=== PATIENT | male | born 1945 | race Caucasian/White ===

== ENCOUNTER 2018-06-05 01:14 | Inpatient (IN) ==
[2018-06-05] MEDS ORDERED: Morphine Sulfate Inj 2 MG/ML Vial IV.PUSH ONE (01:47)
[2018-06-05] MEDS: Sod Chloride 0.9% Inj 1,000 ML IV.CONT SCH ×3 (02:26→19:24)
[2018-06-05 02:33] LABS: Baso % (Auto) 0.2 % (0.0-2.0); Hematocrit 29.5 % (39.0-51.0); Lymph # (Auto) 0.8 th/mm3 (1.0-4.8); Lymph % (Auto) 6.6 % (9.0-44.0); Mean Corpuscular HGB Conc 33.8 % (32.0-36.0); Mean Corpuscular Hemoglobin 30.9 pg (27.0-34.0); Mean Corpuscular Volume 91.5 fL (80.0-100.0); Mean Platelet Volume 8.3 fL (7.0-11.0); Mono # (Auto) 0.5 th/mm3 (0.0-0.9); Neut # (Auto) 11.3 th/mm3 (1.8-7.7); Neut % (Auto) 89.2 % (16.0-70.0); Platelet Count 205 th/mm3 (150-450); Red Blood Count 3.23 mil/mm3 (4.50-5.90); Red Cell Distribution Width 20.1 % (11.6-17.2); White Blood Count 12.7 th/mm3 (4.0-11.0)
[2018-06-05 02:41] LABS: Alanine Aminotransferase 36 U/L (12-78); Albumin 2.8 g/dL (3.4-5.0); Anion Gap 14 meq/L (5-15); Aspartate Aminotransferase 28 U/L (15-37); Blood Urea Nitrogen 86 mg/dL (7-18); Calcium 8.5 mg/dL (8.5-10.1); Carbon Dioxide 21.3 meq/L (21.0-32.0); Chloride 112 meq/L (98-107); Glomerular Filtration Rate 51 mL/min (>89); Glucose,Random 142 mg/dL (74-106); Lipase 87 U/L (73-393); Potassium 5.2 meq/L (3.5-5.1); Sodium 147 meq/L (136-145)
--- NOTE | 2018-06-05 02:41 | XR ---
EXAM DATE: 06/05/2018 1:48 AM EDT AGE/SEX: 73 years / Male INDICATIONS: Shortness of breath. CLINICAL DATA: This is the patient's initial encounter. Patient reports that signs and symptoms have been present for 1 day and indicates a pain score of Nonresponsive. MEDICAL/SURGICAL HISTORY: None. None. COMPARISON: No prior exams available for comparison. FINDINGS: Diffuse interstitial prominence with patchy diffuse nearly nodular opacities. Cardiac silhouette is m ildly enlarged. Bony thorax is intact. CONCLUSION: 1. Cardiomegaly with positive fluid balance. 2. Diffuse patchy bilateral nearly nodule airspace disease. . Electronically signed by: Delonte De La Rosa MD 06/05/2018 2:40 AM EDT
[2018-06-05 02:44] LABS: Alkaline Phosphatase 68 U/L (45-117); Total Protein 5.4 g/dL (6.4-8.2)
--- NOTE | 2018-06-05 02:58 | ED ---
HPI General Chief Complaint: Nausea/Vomiting/Diarrhea Stated Complaint: Diarrhea Time Seen by Provider: 06/05/18 01:47 Source: patient and family Mode of arrival: EMS Limitations: physical limitation History of Present Illness HPI narrative: 73-year-old male complains abdominal pain, diarrhea number shortness of breath. Patient states that the symptoms started around 1:00 this afternoon. Patient stated pain is cramping pain sharp pain diffuse of the abdomen. Patient denies any pain radiation. Patient states that he started having severe diarrhea this afternoon. Patient has history of pulmonary fibrosis and on 3 L O2 nasal cannula at home. Patient also has history of rheumatoid arthritis, CAD, status post stent placement. Patient is on Plavix. Patient complains of generalized malaise and weakness. Patient has history of elevated blood sugar recently. Patient has history of hyperlipidemia. Patient quit smoking many years ago. complaint: Reports abdominal pain Onset (ago): hour(s) Pain Consistency: constant Location: Reports diffuse Severity: moderate Severity scale (1-10): 7 Quality: Reports cramping Radiation: Reports none Migration to: Reports no migration Relieving factors: nothing Exacerbating factors: nothing Associated symptoms: Reports diarrhea Related Data Allergies Allergy/AdvReac Type Severity Reaction Status Date / Time No Known Allergies Allergy Unverified 06/05/18 01:16 Review of Systems ROS: all other systems reviewed are negative PMFSH Medical History Medical History High cholesterol (Acute) Pulmonary fibrosis (Acute) Rheumatoid arthritis (Acute) Surgical History Surgical History H/O heart artery stent (Acute) History of tonsillectomy (Acute) Social History Social History Substance History: No History of Abuse Second Hand Smoke Exposure: No Smoking Status: Never smoker How Often Do You Have a Drink Containing Alcohol: Never Recent Travel in [facility] within the Last 8 Weeks: No Recent Out of Country Travel within the Last 8 Weeks: No Immunization History Tetanus Immunization: <5 Years Hx Influenza Vaccine This Season: No Exam Narrative Exam Narrative: GENERAL: Well-nourished, well-developed patient. SKIN: Focused skin assessment warm/dry. HEAD: Normocephalic. EYES: No scleral icterus. No injection or drainage. NECK: Supple, trachea midline. No JVD or lymphadenopathy. CARDIOVASCULAR: Regular rate and rhythm without murmurs, gallops, or rubs. RESPIRATORY: Breath sounds equal bilaterally. No accessory muscle use. Patient has mild diffuse rhonchi bilaterally. GASTROINTESTINAL: Abdomen soft, nondistended. Patient has moderate tenderness on palpation diffuse over the abdomen. No rebound tenderness. No mass. MUSCULOSKELETAL: No cyanosis, or edema. BACK: Nontender without obvious deformity. No CVA tenderness. Course Initial Documented Vital Signs Temperature 97.2 F L 06/05/18 01:16 Pulse Rate 192 H 06/05/18 01:16 Respiratory Rate 27 H 06/05/18 01:16 Blood Pressure 201/130 H 06/05/18 01:16 Last Documented Vital Signs Temperature 97.2 F L 06/05/18 01:16 Pulse Rate 100 H 06/05/18 01:35 Respiratory Rate 39 H 06/05/18 01:35 Blood Pressure 149/63 H 06/05/18 01:35 Pulse Oximetry 100 06/05/18 01:59 Medical Decision Making [facility] Narrative Medical decision making narrative: 73-year-old male with abdominal pain, diarrhea, shortness of breath. History of pulmonary fibrosis. Patient was given nonrebreathing mask. Patient was feeling better. Patient was given nasal cannula 6 L. Patient maintained O2 saturation about 94%. Levaquin 750 mg IV. Flagyl 500 mg IV. Normal saline solution 1 L IV bolus. Normal saline solution 125 cc an hour. Medical Screen Exam Complete: Yes Emergency Medical Condition: Yes Differential Diagnosis Differential Diagnosis: Differential diagnosis including gastroenteritis, gastritis, PUD, pancreatitis, cholecystitis, colitis, UTI, pyelonephritis, nephrolithiasis, acute exacerbation of pulmonary fibrosis, bronchitis, pneumonia , PE, pneumothorax. Lab Data Lab results reviewed: Yes I reviewed the patient's lab results. Result diagrams: 06/05/18 02:00 06/05/18 02:00 Lab Results 06/05/18 06/05/18 06/05/18 Range/Units 02:00 02:00 02:20 WBC 12.7 H (4.0-11.0) th/mm3 RBC 3.23 L (4.50-5.90) mil/mm3 Hgb 10.0 L (13.0-17.0) gm/dL Hct 29.5 L (39.0-51.0) % MCV 91.5 (80.0-100.0) fL MCH 30.9 (27.0-34.0) pg MCHC 33.8 (32.0-36.0) % RDW 20.1 H (11.6-17.2) % Plt Count 205 (150-450) th/mm3 MPV 8.3 (7.0-11.0) fL Neut % (Auto) 89.2 H (16.0-70.0) % Lymph % (Auto) 6.6 L (9.0-44.0) % [place] % (Auto) 4.0 (0.0-8.0) % Eos % (Auto) 0.0 (0.0-4.0) % Baso % (Auto) 0.2 (0.0-2.0) % Neut # (Auto) 11.3 H (1.8-7.7) th/mm3 Lymph # (Auto) 0.8 L (1.0-4.8) th/mm3 [place] # (Auto) 0.5 (0.0-0.9) th/mm3 Eos # (Auto) 0.0 (0.0-0.4) th/mm3 Baso # (Auto) 0.0 (0.0-0.2) th/mm3 WBC Differential . Differential Comment Auto diff final Sodium 147 H (136-145) meq/L Potassium 5.2 H (3.5-5.1) meq/L Chloride 112 H (98-107) meq/L Carbon Dioxide 21.3 (21.0-32.0) meq/L Anion Gap 14 (5-15) meq/L BUN 86 H (7-18) mg/dL Creatinine 1.37 H (0.60-1.30) mg/dL Estimated GFR 51 L (>89) mL/min Random Glucose 142 H (74-106) mg/dL Lactic Acid 6.4 H* (0.4-2.0) mmol/L Calcium 8.5 (8.5-10.1) mg/dL Total Bilirubin 0.7 (0.2-1.0) mg/dL AST 28 (15-37) U/L ALT 36 (12-78) U/L Alkaline Phosphatase 68 (45-117) U/L Total Protein 5.4 L (6.4-8.2) g/dL Albumin 2.8 L (3.4-5.0) g/dL Lipase 87 (73-393) U/L Imaging Data Attestation: I personally reviewed and interpreted this imaging study as follows : Radiologist's impression: Abdomen/Pelvis CT 06/05/18 01:48 CONCLUSION: 1. Findings consistent with mild diverticulitis involving the proximal descending colon. No evidence for abscess or perforation at this time. 2. Findings consistent with pulmonary fibrosis at the lung bases. 3. Nonspecific prominence of the prostate gland and seminal vesicles. 4. Additional ancillary findings, as above. Chest X-Ray 06/05/18 01:48 CONCLUSION: 1. Cardiomegaly with positive fluid balance. 2. Diffuse patchy bilateral nearly nodule airspace disease. . Discharge Plan Discharge Disposition Patient Disposition: 30 Still Patient Discharge Details Diagnosis: Diverticulitis, Acute dehydration Physicians Team ED Provider: Bulmaro Monahan Primary Care Provider: Primary Care Luciai,No Status ED Status: With Doctor
--- NOTE | 2018-06-05 04:10 | CT ---
EXAM DATE: 06/05/2018 1:58 AM EDT AGE/SEX: 73 years / Male INDICATIONS: Abdominal pain. CLINICAL DATA: This is the patient's initial encounter. Patient reports that signs and symptoms have been present for 1 day and indicates a pain score of 5/10. MEDICAL/SURGICAL HISTORY: Rheumatoid arthritis. Pulmonary fibrosis. . Coronary stent. RADIATION DOSE: 6.64 CTDI (mGy) COMPARISON: No prior exams available for comparison. TECHNIQUE: Multiple contiguous axial images were obtained through the abdomen. Images were obtained using multiple row detector helical technique. Using automated exposure control and adjustment of the mA and/or kV according to patient size, radiation dose was kept as low as reasonably achievable to o btain optimal diagnostic quality images. DICOM format image data is available electronically for rev iew and comparison. FINDINGS: LOWER LUNGS: Bibasilar honeycombing. Small calcified granuloma at the left lung base. LIVER: 2.8 cm cyst in the inferior right lobe of the liver. Otherwise, liver demonstrates uniform de nsity without intrahepatic ductal dilatation. No calcified gallstones. SPLEEN: Multiple splenic calcifications. Otherwise unremarkable. PANCREAS: Grossly unremarkable. KIDNEYS: Kidneys are symmetrical in size without evidence for radiopaque renal calculi or hydronephr osis. No significant contour deforming renal abnormality. ADRENAL GLANDS: Unremarkable. AORTA: Diffuse atherosclerotic calcifications with ectasia distally measuring up to 1.9 cm. BOWEL/MESENTERY: Mild to moderate sigmoid and descending colon diverticulosis . There is pericolonic inflammatory stranding in the proximal descending colon. No focal drainable fluid collections or olivia e air. Bowel loops are otherwise nondistended. ABDOMINAL WALL: Intact. BLADDER: Contours are smooth. REPRODUCTIVE: Nonspecific prominence of the prostate gland and seminal vesicles. BONY STRUCTURES: Degenerative spondylosis of the lower lumbar spine. CONCLUSION: 1. Findings consistent with mild diverticulitis involving the proximal descending colon. No evidence for abscess or perforation at this time. 2. Findings consistent with pulmonary fibrosis at the lung bases. 3. Nonspecific prominence of the prostate gland and seminal vesicles. 4. Additional ancillary findings, as above. Electronically signed by: Delonte De La Rosa MD 06/05/2018 4:09 AM EDT
[2018-06-05] MEDS ORDERED: Pantoprazole Inj 40 MG Vial IV.PUSH ONE (04:47)
[2018-06-05] MEDS ORDERED: Aluminum/Magnesium/Simethacone Susp 30 ML UDC PO ONE (04:47)
[2018-06-05] MEDS ORDERED: Sod Chloride 0.9% Inj 1,000 ML IV.SIG SCH (05:00)
[2018-06-05] MEDS ORDERED: Bisacodyl 10 MG Supp RECTAL PRN (05:03)
[2018-06-05] MEDS ORDERED: Dextrose 50% in Water 50 ML Vial IV.PUSH PRN (05:11)
--- NOTE | 2018-06-05 06:10 | CT ---
EXAM DATE: 06/05/2018 5:12 AM EDT AGE/SEX: 73 years / Male INDICATIONS: Shortness of breath. CLINICAL DATA: This is the patient's initial encounter. Patient reports that signs and symptoms have been present for 1 day and indicates a pain score of 0/10. MEDICAL/SURGICAL HISTORY: Rheumatoid arthritis. Pulmonary fibrosis. Coronary artery stent. RADIATION DOSE: 6.02 CTDI (mGy) COMPARISON: C, CHEST 1V SINGLE AP, 06/05/2018. . TECHNIQUE: Multiple contiguous axial images were obtained through the chest without contrast. Image s were obtained in suspended respiration using multiple row detector helical technique. Using automa jose exposure control and adjustment of the mA and/or kV according to patient size, radiation dose was kept as low as reasonably achievable to obtain optimal diagnostic quality images. DICOM format imag e data is available electronically for review and comparison. FINDINGS: Lung: Diffuse interstitial prominence and honeycombing with lower lobe predominance consistent with patient's history of pulmonary fibrosis. There is a cavitary 3.6 cm mass in the right upper lobe with associated regional bronchiectasis. There is a 6 mm nodule in the superior segment of the left lower lobe. There is a 5 mm nodule in the anterior right upper lobe. Densely calcified granuloma in the le ft lung base. Pleura: No effusion, significant pleural thickening or pneumothorax. Mediastinum: Heart is unremarkable without pericardial effusion.Moderate coronary artery calcificati ons. Subcentimeter mediastinal and hilar nodes. Osseous Structures: No abnormal focal lytic or blastic bony lesions. Soft Tissues: Soft tissues are unremarkable. No significant axillary adenopathy. Other: Visulaized upper abdomen is unremarkable. CONCLUSION: 1. Diffuse lower lobe predominant interstitial thickening and honeycombing consistent with patient's history of pulmonary fibrosis. 2. 3.6 cm cavitary mass in the right upper lobe. There are at least two additional 5 to 6 mm lung no dules bilaterally. Comparisons with prior examinations would be beneficial for further evaluation. Al ternatively, PET/CT examination may be performed for further evaluation primarily of the right upper lobe cavitary mass. 3. Moderate coronary artery calcifications. Electronically signed by: Delonte De La Rosa MD 06/05/2018 6:09 AM EDT
[2018-06-05 06:12] LABS: Bacteria,Urine Rare /hpf; Bilirubin,Urine Negative (Negative); Clarity,Urine Clear (Clear); Color,Urine Yellow (Yellw/Straw); Glucose,Urine (UA) Negative (Negative); Leukocyte Esterase,Urine Negative (Negative); Nitrite,Urine Negative (Negative); Specific Gravity,Urine 1.017 (1.002-1.035)
--- NOTE | 2018-06-05 06:12 | MH ---
cc: Reji Olivo MD DATE OF ADMISSION: 06/05/2018 HISTORY OF PRESENT ILLNESS: The patient is a 73-year-old male with a past medical history of coronary artery disease with previous stent placement, pulmonary fibrosis on 3 liters home oxygen, who is visiting from [place], [place], presented to [facility] ED with complaint of abdominal pain associated with diarrhea for the past 2 days and shortness of breath. He also reports generalized malaise and weakness. He denies any associated symptoms of nausea, vomiting, chest pain, orthopnea, PND; however, he reports edema of his feet. On arrival to the ER, he was tachycardic and hypertensive. His laboratory data showed lactic acidosis with lactic acid level of 6.4 and acute kidney injury with a BUN of 86 and creatinine 1.37. Also, he was found to have leukocytosis with a WBC of 12.7. A CT abdomen and pelvis was obtained, which showed mild diverticulitis involving the proximal descending colon. No evidence for abscess or perforation and pulmonary fibrosis at the lung bases. In the ER, 1 liter normal saline bolus ordered along with Levaquin and Flagyl. The patient is awake, alert. He was placed on nonrebreather mask with a saturation of 100%. PAST MEDICAL HISTORY: Significant for: 1. Pulmonary fibrosis on 3 liters home oxygen continuously. 2. Coronary artery disease. 3. Hyperlipidemia. 4. Rheumatoid arthritis. PAST SURGICAL HISTORY: Previous hernia repair, previous cardiac catheterization with stent placement in February. SOCIAL HISTORY: Quit smoking 15 years ago, has a 40-pack year history of smoking. Social drinker. ALLERGIES: NO KNOWN DRUG ALLERGIES. MEDICATIONS AT HOME: Include: 1. Aspirin. 2. Plavix. 3. Lipitor. 4. Prednisone. 5. Folic acid. 6. Fluticasone. FAMILY HISTORY: Noncontributing to present illness. REVIEW OF SYSTEMS: As per HPI. The rest of review of systems unremarkable. PHYSICAL EXAMINATION: GENERAL: A 73-year-old male lying in bed in mild respiratory distress. VITAL SIGNS: Temperature 97.2, pulse of 92, blood pressure 149/63, respiratory rate 27, saturation 100% on nonrebreather. HEENT: Atraumatic, normocephalic. Pupils are equal, round, reactive to light and accommodation. Extraocular muscles intact. Conjunctivae pink, anicteric sclerae. Dry mucous membranes. NECK: Supple. No JVD, adenopathy or thyromegaly. Trachea in the midline. CARDIOVASCULAR: Regular rate and rhythm. Normal S1, S2. No murmurs, rubs or gallops noted. PULMONARY: Bilateral equal air entry with coarse breath sounds and crackles. ABDOMEN: Soft. Mild tenderness on palpation. No distention. Positive bowel sounds. EXTREMITIES: No cyanosis, clubbing or edema. NEUROLOGIC: No focal sensory deficit. LABORATORY DATA: WBC 12.7, hemoglobin 10, hematocrit 29.5, platelet count of 205. Sodium 147, potassium 5.2, chloride 112, CO2 21, BUN 86, creatinine 1.37, glucose of 142. Lactic acid 6.4, total bilirubin 0.7, AST 28, ALT 36, alkaline phosphatase 68, lipase 87, albumin 2.8. RADIOGRAPHIC STUDIES: Chest x-ray showed mild diverticulitis involving the proximal descending colon. No evidence of abscess or perforation. Chest x-ray showed diffuse patchy airspace disease. IMPRESSION: 1. Respiratory insufficiency. 2. Diverticulitis. 3. Abdominal pain associated with diarrhea. 4. Lactic acidemia. 5. Leukocytosis. 6. Acute kidney injury. 7. Anemia. 8. Pulmonary fibrosis. 9. Coronary artery disease. 10. Hyperlipidemia. RECOMMENDATIONS: 1. Monitor neuro status and avoid any sedatives. 2. Continue with oxygen and maintain sats above 92%. 3. Bronchodilators and DuoNeb every 4 hours plus q. 2 hours p.r.n. for shortness of breath and we will add Symbicort 160/4.5 mg two puffs b.i.d. 4. Add Solu-Medrol 60 mg intravenous every 8 hours. Of note, the patient is on chronic prednisone 20 mg daily at home. 5. We will obtain CT scan of the chest without contrast for further evaluation of pulmonary parenchyma. 6. Monitor heart rate and blood pressure closely and maintain MAP greater than 65 mmHg. He was given 1 liter bolus of normal saline. Continue with intravenous fluids as ordered, NS 125 mL an hour. 7. Serial lactic acid monitoring until clear. 8. Monitor renal function, I's and O's and avoid nephrotoxins. 9. Intravenous hydration as stated above. 10. Keep n.p.o. for now and place on Protonix 40 mg IV daily for gastrointestinal prophylaxis. 11. Continue with antibiotics. He is scheduled to receive Levaquin and Flagyl. We will continue with Flagyl 500 mg IV every 8 hours. Monitor for signs of infection, which include fever and WBC. Followup on blood cultures. In addition, we will check sputum culture with Gram stain, urinalysis with culture if indicated and we will check Clostridium difficile PCR to rule out Clostridium difficile. 12. Sliding scale insulin with Accu-Checks for glycemic control as the patient will be on intravenous steroids. 13. Monitor CBC. 14. Gastrointestinal prophylaxis with Protonix 40 mg daily and deep venous thrombosis prophylaxis with sequential compression devices and heparin subcutaneous. 15. Intravenous access. The patient has peripheral IV placed, central line if indicated. Reji Olivo MD AI/sv , 05:38 AM , 05:50 AM
[2018-06-05 06:18] LABS: INR 1.2 Ratio; Prothrombin Time 12.1 sec (9.8-11.6)
[2018-06-05] MEDS: Insulin NovoLIN Regular Correctional Sugar Inj SQ SCH ×3 (07:41→18:49)
[2018-06-05] MEDS: MethylPREDNISolone Sod Succinate Inj 40 MG/ML Vial IV.PUSH SCH ×3 (07:41→21:32)
[2018-06-05] MEDS: Pantoprazole Inj 40 MG Vial IV.PUSH SCH (09:34)
[2018-06-05] MEDS: Heparin - SQ 10,000 UNITS/ML Vial SQ SCH ×2 (09:34→21:31)
[2018-06-05 11:13] LABS: Calcium 8.4 mg/dL (8.5-10.1); Carbon Dioxide 19.7 meq/L (21.0-32.0); Potassium 4.9 meq/L (3.5-5.1)
[2018-06-05 18:33] LABS: Alanine Aminotransferase 29 U/L (12-78); Albumin 2.3 g/dL (3.4-5.0); Alkaline Phosphatase 54 U/L (45-117); Anion Gap 9 meq/L (5-15); Aspartate Aminotransferase 26 U/L (15-37); Blood Urea Nitrogen 70 mg/dL (7-18); Calcium 7.9 mg/dL (8.5-10.1); Carbon Dioxide 22.3 meq/L (21.0-32.0); Chloride 117 meq/L (98-107); Glomerular Filtration Rate 64 mL/min (>89); Glucose,Random 100 mg/dL (74-106); Potassium 4.6 meq/L (3.5-5.1); Sodium 148 meq/L (136-145); Total Protein 4.5 g/dL (6.4-8.2)
--- NOTE | 2018-06-05 21:05 | ECG ---
Date Performed: 06/05/2018 Time Performed: 01:38:17 PTAGE: 73 years EKG: SINUS TACHYCARDIA WITH OCCASIONAL SUPRAVENTRICULAR PREMATURE COMPLEXES LEFT ANTERIOR FASCIC ULAR BLOCK VOLTAGE CRITERIA FOR LVH ABNORMAL ECG NO PREVIOUS TRACING DOCTOR: Odalis Sims Interpretating Date/Time 06/05/2018 21:04:23
[2018-06-06] MEDS: Insulin NovoLIN Regular Correctional Sugar Inj SQ SCH ×4 (00:44→18:37)
[2018-06-06] MEDS: Sod Chloride 0.9% Inj 1,000 ML IV.CONT SCH (02:59)
[2018-06-06] MEDS ORDERED: Chlorhexidine Gluconate 2% 1 Pack (2 Cloths) TOPICAL PRN (04:00)
[2018-06-06] MEDS: MethylPREDNISolone Sod Succinate Inj 40 MG/ML Vial IV.PUSH SCH ×2 (05:18→14:37)
[2018-06-06] MEDS: Chlorhexidine Gluconate 2% 1 Pack (2 Cloths) TOPICAL SCH (05:21)
[2018-06-06 06:34] LABS: Hematocrit 22.2 % (39.0-51.0); Hemoglobin 7.2 gm/dL (13.0-17.0); Lymph # (Auto) 0.6 th/mm3 (1.0-4.8); Lymph % (Auto) 6.6 % (9.0-44.0); Mean Corpuscular HGB Conc 32.3 % (32.0-36.0); Mean Corpuscular Hemoglobin 29.9 pg (27.0-34.0); Mean Corpuscular Volume 92.4 fL (80.0-100.0); Mean Platelet Volume 8.1 fL (7.0-11.0); Mono # (Auto) 0.1 th/mm3 (0.0-0.9); Mono % (Auto) 1.4 % (0.0-8.0); Neut # (Auto) 8.5 th/mm3 (1.8-7.7); Platelet Count 186 th/mm3 (150-450); Red Cell Distribution Width 20.4 % (11.6-17.2); White Blood Count 9.2 th/mm3 (4.0-11.0)
[2018-06-06 07:03] LABS: Alanine Aminotransferase 26 U/L (12-78); Albumin 2.5 g/dL (3.4-5.0); Alkaline Phosphatase 53 U/L (45-117); Anion Gap 8 meq/L (5-15); Aspartate Aminotransferase 22 U/L (15-37); Blood Urea Nitrogen 56 mg/dL (7-18); Carbon Dioxide 24.4 meq/L (21.0-32.0); Chloride 115 meq/L (98-107); Glomerular Filtration Rate 66 mL/min (>89); Glucose,Random 118 mg/dL (74-106); Magnesium 2.6 mg/dL (1.5-2.5); Phosphorus 3.9 mg/dL (2.5-4.9); Potassium 4.8 meq/L (3.5-5.1); Sodium 147 meq/L (136-145); Total Protein 4.7 g/dL (6.4-8.2)
[2018-06-06] MEDS: Heparin - SQ 10,000 UNITS/ML Vial SQ SCH (08:00)
[2018-06-06] MEDS: Pantoprazole Inj 40 MG Vial IV.PUSH SCH (08:01)
[2018-06-06] MEDS ORDERED: Acetaminophen 325 MG Tablet PO PRN (12:34)
[2018-06-06 16:27] LABS: Hematocrit 21.5 % (39.0-51.0)
--- NOTE | 2018-06-06 19:59 | P.PNIM ---
Subjective Interval history: Patient states he feels better than when he first arrived to the hospital. His symptoms of a diarrhea and abdominal pain have improved. Physical Exam Vital signs: Vital Signs 06/05/18 20:00 06/05/18 20:58 06/05/18 21:00 Temperature 98 F Pulse Rate 80 85 83 Respiratory Rate 24 20 33 H Blood Pressure 109/59 L 110/58 L Pulse Oximetry 100 95 95 06/05/18 22:00 06/05/18 23:00 06/06/18 00:00 Temperature 97.8 F Pulse Rate 85 81 78 Respiratory Rate 28 H 30 H 27 H Blood Pressure 102/51 L 108/55 L 106/59 L Pulse Oximetry 96 99 97 06/06/18 00:34 06/06/18 01:00 06/06/18 02:00 Temperature Pulse Rate 78 75 73 Respiratory Rate 34 H 23 26 H Blood Pressure 106/59 L 117/56 L 133/60 Pulse Oximetry 96 100 100 06/06/18 03:00 06/06/18 03:42 06/06/18 04:00 Temperature 98.1 F Pulse Rate 72 74 79 Respiratory Rate 39 H 18 19 Blood Pressure 115/59 L 110/53 L Pulse Oximetry 100 92 L 06/06/18 05:00 06/06/18 06:00 06/06/18 07:00 Temperature 97.6 F Pulse Rate 78 75 78 Respiratory Rate 24 25 H 22 Blood Pressure 95/54 L 120/59 L Pulse Oximetry 83 L 100 100 06/06/18 08:00 06/06/18 08:13 06/06/18 08:15 Temperature Pulse Rate 75 74 74 Respiratory Rate 30 H 32 H 31 H Blood Pressure 120/59 L 121/59 L Pulse Oximetry 93 L 96 99 06/06/18 09:00 06/06/18 10:00 06/06/18 11:00 Temperature Pulse Rate 72 77 86 Respiratory Rate 26 H 34 H 42 H Blood Pressure 119/59 L 114/55 L 111/53 L Pulse Oximetry 99 97 90 L 06/06/18 12:00 06/06/18 13:00 06/06/18 14:00 Temperature Pulse Rate 75 90 85 Respiratory Rate 16 41 H 36 H Blood Pressure 124/60 122/58 L 123/55 L Pulse Oximetry 100 91 L 95 06/06/18 15:00 06/06/18 16:00 10/04/18 16:38 Temperature Pulse Rate 77 82 81 Respiratory Rate 25 H 35 H 24 Blood Pressure 131/61 122/58 L Pulse Oximetry 99 97 06/06/18 17:00 06/06/18 18:00 06/06/18 18:01 Temperature Pulse Rate 80 91 H 94 H Respiratory Rate 33 H 32 H 41 H Blood Pressure 112/58 L 116/85 Pulse Oximetry 100 91 L 91 L Intake & Output 06/06/18 06/06/18 06/07/18 06:59 18:59 06:59 Intake Total 860 / 860 100 / 100 Output Total 700 / 700 900 / 900 Balance 160 / 160 -800 / -800 Intake: IV 100 / 100 100 / 100 Flagyl 500 MG Inj 100 ML @ 100 100 / 100 100 / 100 mls/hr IV.SIG Q8H NILSA Rx#: [id number] Oral 760 / 760 Output: Urine 700 / 700 900 / 900 Other: Date of Last Bowel Movement 06/05/18 06/05/18 # Bowel Movements 1 Narrative: General patient in no acute distress, patient appears pale. HEENT extraocular movements are intact, clear oropharyngeal mucosa, no JVD Cardiovascular S1-S2 audible, RRR, no murmurs rubs or gallops Respiratory crackles auscultated bilaterally mainly in the lower lobes. Abdomen soft, nontender, nondistended, minimal abdominal pain on examination. Extremities no edema 2+ distal pulses in bilateral upper and lower extremities Neuro patient moves all 4 extremities sensation is intact bilaterally Results - Labs CBC & Chem 7: 06/06/18 16:00 06/06/18 04:32 Laboratory Results - last 24 hr 06/06/18 06/06/18 06/06/18 00:08 04:32 04:32 WBC 9.2 RBC 2.40 L Hgb 7.2 L D Hct 22.2 L MCV 92.4 MCH 29.9 MCHC 32.3 RDW 20.4 H Plt Count 186 MPV 8.1 Neut % (Auto) 92.0 H Lymph % (Auto) 6.6 L Ransom % (Auto) 1.4 Eos % (Auto) 0.0 Baso % (Auto) 0.0 Neut # (Auto) 8.5 H Lymph # (Auto) 0.6 L Ransom # (Auto) 0.1 Eos # (Auto) 0.0 Baso # (Auto) 0.0 WBC Differential . Differential Comment Auto diff final Sodium 147 H Potassium 4.8 Chloride 115 H Carbon Dioxide 24.4 Anion Gap 8 BUN 56 H Creatinine 1.10 Estimated GFR 66 L POC Glucose 136 H Random Glucose 118 H Calcium 8.0 L Phosphorus 3.9 Magnesium 2.6 H Total Bilirubin 0.4 AST 22 ALT 26 Alkaline Phosphatase 53 Total Protein 4.7 L Albumin 2.5 L 06/06/18 06/06/18 12:39 16:00 WBC RBC Hgb 7.0 L Hct 21.5 L MCV MCH MCHC RDW Plt Count MPV Neut % (Auto) Lymph % (Auto) Ransom % (Auto) Eos % (Auto) Baso % (Auto) Neut # (Auto) Lymph # (Auto) Ransom # (Auto) Eos # (Auto) Baso # (Auto) WBC Differential Differential Comment Sodium Potassium Chloride Carbon Dioxide Anion Gap BUN Creatinine Estimated GFR POC Glucose 162 H Random Glucose Calcium Phosphorus Magnesium Total Bilirubin AST ALT Alkaline Phosphatase Total Protein Albumin Microbiology 06/05/18 02:10 Blood - Peripheral Aerobic Blood Culture - Preliminary No growth in 1 day 06/05/18 02:10 Blood - Peripheral Anaerobic Blood Culture - Preliminary No growth in 1 day 06/05/18 02:20 Blood - Peripheral Aerobic Blood Culture - Preliminary No growth in 1 day 06/05/18 02:20 Blood - Peripheral Anaerobic Blood Culture - Preliminary No growth in 1 day Assessment and Plan - Plan This patient is a 73-year-old male with a diagnosis of coronary artery disease status post stent placed in February of this year. The patient also has pulmonary fibrosis and is on 3 L of supplemental oxygen at home. As per the patient's he also has Le's esophagus. He is visiting [place] from [facility]. He presented to our facility last night with 1 day of black tarry diarrhea. The patient and the patient's provided the history. They say he had diarrhea for almost the whole day. He felt weak and dehydrated and then came into the emergency department for evaluation. 1. Acute symptomatic blood loss anemia likely GI bleed I discussed the case with the patient's was at bedside. She showed me labs from May 2018 which showed the patient's hemoglobin was 15.2. He arrived to our facility with a hemoglobin of 10 which has dropped today to 7.0. After the initiation of IV fluids his abdominal pain has improved and he has not had another bowel movement while in-house. A stool guaiac will be performed however from the description that the patient and his are giving me this is more than likely a GI bleed. He will be started on a Protonix drip. GI will be consulted for possible upper and lower endoscopy. A CT scan of the abdomen and pelvis was also done in the emergency department which showed mild diverticulitis involving the proximal descending colon. Hold Lovenox The patient is on aspirin and Plavix for a recent coronary stent that was placed. Last dose he received was this morning. He will be given two units PRBC. INR is 1.2. I will follow-up with GI tomorrow a.m. for specific recommendations. Blood pressure is currently stable. Vital signs are all stable. Lactate normalized after the initiation of IV fluids. His lactic acidosis was likely secondary to dehydration due to the diarrhea and blood loss. 2. Pulmonary fibrosis The patient has a diagnosis of pulmonary fibrosis and is on 3 L of supplemental oxygen at baseline. CT scan of the chest shows diffuse lower lobe interstitial thickening and honeycombing which is consistent with the patient's pulmonary disease. There is also a 3.6 cm cavitary mass in the right upper lobe and 2 additional 5-6 mm lung nodules bilaterally. As per the patient's these are findings that were seen previously on CT scans of the chest and have been worked up in [place]. She states that she will call the hospital in the morning and send records to our facility. The fax number from our facility will be given to the patient in order for her to have that hospital release the records. These instructions were discussed with the patient's nurse at bedside. Solu-Medrol has been stopped as the patient is currently without any respiratory distress and he is on 3 L of supplemental oxygen which is what he uses at baseline. He currently does not have any difficulty breathing. 3. Acute kidney injury likely secondary to #1 Initially the patient was tachycardic and in acute kidney injury. After the initiation of IV fluids the patient's serum creatinine has improved. We will follow-up with an a.m. renal panel. 4. Coronary artery disease status post stent placement in February 2018. 5. Dyslipidemia The patient is on aspirin and Plavix. Last dose was received this morning. I have held the aspirin and Plavix for now. The patient will receive 2 units of PRBCs as his hemoglobin is around 15 at baseline. I will follow-up with GI tomorrow morning and discussed the plan with him for endoscopy. Once the bleeding is stabilized the patient should be restarted on aspirin and Plavix given his recent stent placement and coronary artery disease. No DVT prophylaxis for now as the patient has an active GI bleed.
[2018-06-06] MEDS ORDERED: Pantoprazole Inj 40 MG Vial IV.PUSH ONE (20:16)
[2018-06-06] MEDS ORDERED: Sodium Chlor 0.9% Inj 250 ML IV.SIG SCH (21:00)
[2018-06-06] MEDS: Pantoprazole Inj 80 MG in Sodium Chlor 0.9% Inj 100 ML IV.CONT SCH (21:03)
[2018-06-07] MEDS: Insulin NovoLIN Regular Correctional Sugar Inj SQ SCH ×4 (01:38→18:46)
[2018-06-07] MEDS: Chlorhexidine Gluconate 2% 1 Pack (2 Cloths) TOPICAL SCH (06:12)
[2018-06-07] MEDS: Pantoprazole Inj 80 MG in Sodium Chlor 0.9% Inj 100 ML IV.CONT SCH ×2 (10:00→20:10)
--- NOTE | 2018-06-07 10:23 | P.PNIM ---
Subjective Interval history: Patient does not appear to be in any acute distress. He has minimal abdominal pain otherwise no other complaints. Physical Exam Vital signs: Vital Signs 06/06/18 11:00 06/06/18 12:00 06/06/18 13:00 Temperature Pulse Rate 86 75 90 Respiratory Rate 42 H 16 41 H Blood Pressure 111/53 L 124/60 122/58 L Pulse Oximetry 90 L 100 91 L 06/06/18 14:00 06/06/18 15:00 06/06/18 16:00 Temperature Pulse Rate 85 77 82 Respiratory Rate 36 H 25 H 35 H Blood Pressure 123/55 L 131/61 122/58 L Pulse Oximetry 95 99 97 06/06/18 16:38 06/06/18 17:00 06/06/18 18:00 Temperature Pulse Rate 81 80 91 H Respiratory Rate 24 33 H 32 H Blood Pressure 112/58 L Pulse Oximetry 100 91 L 06/06/18 18:01 06/06/18 19:00 06/06/18 20:00 Temperature 98 F Pulse Rate 94 H 88 84 Respiratory Rate 41 H 38 H 36 H Blood Pressure 116/85 136/60 118/58 L Pulse Oximetry 91 L 87 L 97 06/06/18 21:00 06/06/18 21:21 06/06/18 22:00 Temperature Pulse Rate 86 86 84 Respiratory Rate 35 H 20 33 H Blood Pressure 111/53 L 111/58 L Pulse Oximetry 94 L 96 95 06/06/18 23:00 06/07/18 00:00 06/07/18 00:04 Temperature 98 F 98.4 F Pulse Rate 82 82 81 Respiratory Rate 30 H 31 H 30 H Blood Pressure 125/58 L 121/58 L 121/58 L Pulse Oximetry 97 97 98 06/07/18 01:00 06/07/18 02:00 06/07/18 03:00 Temperature Pulse Rate 85 78 80 Respiratory Rate 33 H 29 H 34 H Blood Pressure 127/86 122/61 121/64 Pulse Oximetry 95 99 95 06/07/18 03:01 06/07/18 03:05 06/07/18 03:18 Temperature 98.3 F 98 F Pulse Rate 80 85 88 Respiratory Rate 30 H 29 H 16 Blood Pressure 121/64 118/66 Pulse Oximetry 98 06/07/18 04:00 06/07/18 05:00 06/07/18 05:57 Temperature 98.2 F 98 F Pulse Rate 89 81 63 Respiratory Rate 31 H 28 H 32 H Blood Pressure 121/67 136/67 133/67 Pulse Oximetry 97 96 06/07/18 06:00 06/07/18 07:00 Temperature Pulse Rate 84 86 Respiratory Rate 44 H 32 H Blood Pressure 139/71 147/68 H Pulse Oximetry 95 95 Intake & Output 06/06/18 06/07/18 06/07/18 18:59 06:59 18:59 Intake Total 200 / 200 1263 / 1263 Output Total 900 / 900 850 / 850 Balance -700 / -700 413 / 413 Intake: IV 200 / 200 1100 / 1100 NS Inj 1,000 ML @ 50 mls/hr IV. 1000 / 1000 CONT .Q20H NILSA Rx#:[id number] Flagyl 500 MG Inj 100 ML @ 100 200 / 200 100 / 100 mls/hr IV.SIG Q8H NILSA Rx#: [id number] Oral 0 / 0 Intake (Blood Product) Amt 163 / 163 Rbc As-3 Leukoreduced Unit 99 / 99 [id number] Rbc As-3 Leukoreduced Unit 64 / 64 [id number] Output: Urine 900 / 900 850 / 850 Other: Date of Last Bowel Movement 06/05/18 06/05/18 # Bowel Movements 1 Narrative: General patient in no acute distress, patient appears pale. HEENT extraocular movements are intact, clear oropharyngeal mucosa, no JVD Cardiovascular S1-S2 audible, RRR, no murmurs rubs or gallops Respiratory crackles auscultated bilaterally mainly in the lower lobes. Abdomen soft, nontender, nondistended, minimal abdominal pain on examination. Extremities no edema 2+ distal pulses in bilateral upper and lower extremities Neuro patient moves all 4 extremities sensation is intact bilaterally Results - Labs CBC & Chem 7: 06/06/18 16:00 06/06/18 04:32 Laboratory Results - last 24 hr 06/06/18 06/06/18 06/06/18 12:39 16:00 20:44 Hgb 7.0 L Hct 21.5 L POC Glucose 162 H Blood Type O Positive Blood Type Recheck Required Antibody Screen Negative MTS Gel Crossmatch See Detail 06/07/18 06/07/18 00:21 05:55 Hgb Hct POC Glucose 143 H 131 H Blood Type Blood Type Recheck Antibody Screen MTS Gel Crossmatch Microbiology 06/05/18 02:10 Blood - Peripheral Aerobic Blood Culture - Preliminary No growth in 1 day 06/05/18 02:10 Blood - Peripheral Anaerobic Blood Culture - Preliminary No growth in 1 day 06/05/18 02:20 Blood - Peripheral Aerobic Blood Culture - Preliminary No growth in 1 day 06/05/18 02:20 Blood - Peripheral Anaerobic Blood Culture - Preliminary No growth in 1 day Assessment and Plan - Plan This patient is a 73-year-old male with a diagnosis of coronary artery disease status post stent placed in February of this year. The patient also has pulmonary fibrosis and is on 3 L of supplemental oxygen at home. As per the patient's he also has Le's esophagus. He is visiting [place] from [facility]. He presented to our facility last night with 1 day of black tarry diarrhea. The patient and the patient's provided the history. They say he had diarrhea for almost the whole day. He felt weak and dehydrated and then came into the emergency department for evaluation. 1. Acute symptomatic blood loss anemia likely GI bleed The patient has stable vital signs this morning. Heart rate is in the 80s, blood pressure is in the high 130s. He is on IV Protonix and IV fluids. GI has been consulted. I will follow-up with recognitions from GI. This morning's labs are currently pending. He has received 2 units PRBCs and I will follow-up the patient's hemoglobin today. The patient's has documentation of his hemoglobin in May 2018 which was 15.2. Hemoglobin as of yesterday was 7.0. The patient's diarrhea has improved and he did not have a bowel movement overnight. The patient is on aspirin and Plavix. He recently had a stent placed in February 2018. After GI evaluates the patient I will follow-up with him in regards to when he can be restarted on his aspirin and Plavix. 2. Pulmonary fibrosis The patient has a diagnosis of pulmonary fibrosis and is on 3 L of supplemental oxygen at baseline. CT scan of the chest shows diffuse lower lobe interstitial thickening and honeycombing which is consistent with the patient's pulmonary disease. There is also a 3.6 cm cavitary mass in the right upper lobe and 2 additional 5-6 mm lung nodules bilaterally. As per the patient's these are findings that were seen previously on CT scans of the chest and have been worked up in [place]. She states that she will call the hospital in the morning and send records to our facility. The fax number from our facility will be given to the patient in order for her to have that hospital release the records. These instructions were discussed with the patient's nurse at bedside. Solu-Medrol has been stopped as the patient is currently without any respiratory distress and he is on 3 L of supplemental oxygen which is what he uses at baseline. He currently does not have any difficulty breathing. We will follow-up with results of these records. 3. Acute kidney injury likely secondary to #1 Initially the patient was tachycardic and in acute kidney injury. After the initiation of IV fluids the patient's serum creatinine has improved. We will follow-up with an a.m. renal panel which is currently pending. 4. Coronary artery disease status post stent placement in February 2018. 5. Dyslipidemia The patient is on aspirin and Plavix. Last dose was received this morning. I have held the aspirin and Plavix for now. The patient will receive 2 units of PRBCs as his hemoglobin is around 15 at baseline. I will follow-up with GI tomorrow morning and discussed the plan with him for endoscopy. Once the bleeding is stabilized the patient should be restarted on aspirin and Plavix given his recent stent placement and coronary artery disease. No DVT prophylaxis for now as the patient has an active GI bleed.
--- NOTE | 2018-06-07 11:20 | P.CONGI ---
History of Present Illness Consult date: 06/07/18 Consult reason: GI bleed Chief complaint: Acute Diverticulitis, Dehydration, Pulm Fibrosis History of Present Illness: This is a 73-year-old male who came to the hospital here at [place] for evaluation on 06/05/2018 with symptoms of abdominal pain diarrhea and some shortness of breath. Patient is originally from the [facility] and was here on vacation when he noted loose stools uncontrolled as well as abdominal pain and cramping diffusely across his abdomen. Patient also noted dark melena stool when the abdominal cramping was occurring. Patient did have one episode of nausea and vomiting in the emergency room but has been controlled since that time. Initial hemoglobin on admission was 10 but had dropped down to 7. And 2 units of packed RBCs were transfused. Patient has cardiovascular disease and recent stent placement in February 2018 in which at that time he was started on Plavix. Patient also has history of Le's esophagus and states endoscopy approximately 2-1/2 years ago and colonoscopy at the age of 52 x 1 and no repeat since. Aggregating factors to patient's melena and abdominal pain could be related to travel, RA medications, and has been eaten seafood as well as raw oysters x2. Patient also had been working on a low-carb diet a few weeks before his vacation. Patient denies any history of peptic ulcer disease or bleeding ulcers. Patient notes occasionally does have loose diarrhea stools which he describes as sporadic and states that he feels it is related to his RA med. Labs show bilirubin and LFTs normal, PT/INR 1.2, C. difficile test negative. During exam patient did note some mild dysphasia at the lower end of esophagus and states this is been going on for at least a year but he does not note any choking sensations. Patient does use home O2 at 3 L and is currently being managed at 3 L nasal cannula in the intensive care setting. Currently patient has no shortness of breath, heart rate is controlled with sinus rhythm and blood pressure is stable without any noted hypotension. Gastroenterology was consulted to assist with patient's plan of care, symptoms. According to the patient and the record Plavix has been on hold day 2. [facility] - History History Provided By: Patient - Medical History Medical History: Medical History (Last Reviewed 06/05/18 @ 02:55 by Bulmaro Monahan MD) High cholesterol Pulmonary fibrosis Rheumatoid arthritis - Surgical History Surgical History: Surgical History (Last Reviewed 06/05/18 @ 02:55 by Bulmaro Monahan MD) H/O heart artery stent History of tonsillectomy - Tobacco History Second Hand Smoke Exposure: No Tobacco Use In Past 30 Days: No Smoking Status: Former smoker Tobacco Type: Cigarettes - Alcohol History How Often Do You Have a Drink Containing Alcohol: Never - Substance Use History Substance History: No History of Abuse - Travel History Recent Travel in the [place] Within the Last 8 Weeks: No Recent Travel Out of the Country Within the Last 8 Weeks: No - Immunization History Tetanus Immunization: <5 Years Hx Influenza Vaccine This Season: No Medications and Allergies Active Medications: Active Medications Acetaminophen (Tylenol) 650 mg PO Q6H PRN PRN Reason: PAIN 1-10 Last Admin: 06/06/18 13:26 Dose: 650 mg Al Hydroxide/Mg Hydroxide (Milk Of Magnmarco Liq) 30 ml PO Q12H PRN PRN Reason: Mild Constipation Last Admin: 06/05/18 05:12 Dose: 30 ml Albuterol (Duoneb Neb (Prn)) 1 ampul NEB Q2HR NEB PRN PRN Reason: WHEEZING Albuterol (Duoneb Neb (Nilsa)) 1 ampul NEB Q6HR NEB NILSA Last Admin: 06/07/18 03:18 Dose: 1 ampul Atorvastatin Calcium (Lipitor) 40 mg PO HS NILSA Last Admin: 06/06/18 21:00 Dose: 40 mg Bisacodyl (Dulcolax Supp) 10 mg RECTAL DAILY PRN PRN Reason: SEVERE CONSITIPATION Chlorhexidine Gluconate (Chlorhexidine 2% Cloth) 3 pack TOPICAL DAILY@0400 NILSA Stop: 06/11/18 03:59 Last Admin: 06/07/18 06:12 Dose: 3 pack Chlorhexidine Gluconate (Chlorhexidine 2% Cloth) 3 pack TOPICAL DAILY@0400 PRN PRN Reason: Extra cloth needed Stop: 06/11/18 03:59 Dextrose (D50w Vial) 50 ml IV.PUSH UNSCH PRN PRN Reason: PER HYPOGLYCEMIA PROTOCOL Glucagon (Glucagon Inj) 1 mg OTHER PRN PRN PRN Reason: for Hypoglycemia Protocol Sodium Chloride (Ns Inj) 1,000 mls @ 50 mls/hr IV.CONT .Q20H NILSA Last Infusion: 06/07/18 06:13 Dose: Infused Sodium Chloride (Ns Inj) 1,000 mls @ 0 mls/hr IV.SIG BOLUS NILSA Metronidazole/Sodium Chloride (Flagyl 500 Mg Inj) 100 mls @ 100 mls/hr IV.SIG Q8H NILSA Last Admin: 06/07/18 06:13 Dose: 100 mls/hr Sodium Chloride (Ns Inj) 250 mls @ 15 mls/hr IV.SIG ONCE NILSA Stop: 06/07/18 13:39 Last Admin: 06/07/18 01:05 Dose: 15 mls/hr Pantoprazole Sodium 80 mg/ (Sodium Chloride) 100 mls @ 10 mls/hr IV.CONT CONT NILSA Last Admin: 06/06/18 21:03 Dose: 10 mls/hr Insulin Human Regular (Novolin R Correctional Sugar Inj) 0 units SQ Q6HR NILSA; Protocol Last Admin: 06/07/18 06:15 Dose: Not Given Lactulose (Lactulose Liq) 30 ml PO DAILY PRN PRN Reason: SEVERE CONSITIPATION Allergies Allergy/AdvReac Type Severity Reaction Status Date / Time No Known Allergies Allergy Unverified 06/05/18 01:16 Home Medications Medication Instructions Recorded Confirmed Type aspirin 81 mg PO DAILY 06/05/18 06/05/18 History atorvastatin [Lipitor] 40 mg PO DAILY 06/05/18 06/05/18 History clopidogrel [Plavix] 75 mg PO DAILY 06/05/18 06/05/18 History fluticasone 2 spray INTRANASAL DAILY 06/05/18 06/05/18 History folic acid 0.8 mg PO DAILY 06/05/18 06/05/18 History hydrochlorothiazide 12.5 mg PO DAILY 06/05/18 06/05/18 History irbesartan 150 mg PO DAILY 06/05/18 06/05/18 History leflunomide [Arava] 06/05/18 History prednisone 20 mg PO DAILY 06/05/18 06/05/18 History tamsulosin 0.4 mg PO DAILY 06/05/18 06/05/18 History Exam Vital signs: Vital Signs 06/06/18 12:00 06/06/18 13:00 06/06/18 14:00 Temperature Pulse Rate 75 90 85 Respiratory Rate 16 41 H 36 H Blood Pressure 124/60 122/58 L 123/55 L Pulse Oximetry 100 91 L 95 10/04/18 15:00 06/06/18 16:00 06/06/18 16:38 Temperature Pulse Rate 77 82 81 Respiratory Rate 25 H 35 H 24 Blood Pressure 131/61 122/58 L Pulse Oximetry 99 97 06/06/18 17:00 06/06/18 18:00 06/06/18 18:01 Temperature Pulse Rate 80 91 H 94 H Respiratory Rate 33 H 32 H 41 H Blood Pressure 112/58 L 116/85 Pulse Oximetry 100 91 L 91 L 06/06/18 19:00 06/06/18 20:00 06/06/18 21:00 Temperature 98 F Pulse Rate 88 84 86 Respiratory Rate 38 H 36 H 35 H Blood Pressure 136/60 118/58 L 111/53 L Pulse Oximetry 87 L 97 94 L 06/06/18 21:21 06/06/18 22:00 06/06/18 23:00 Temperature Pulse Rate 86 84 82 Respiratory Rate 20 33 H 30 H Blood Pressure 111/58 L 125/58 L Pulse Oximetry 96 95 97 06/07/18 00:00 06/07/18 00:04 06/07/18 01:00 Temperature 98 F 98.4 F Pulse Rate 82 81 85 Respiratory Rate 31 H 30 H 33 H Blood Pressure 121/58 L 121/58 L 127/86 Pulse Oximetry 97 98 95 06/07/18 02:00 06/07/18 03:00 06/07/18 03:01 Temperature 98.3 F Pulse Rate 78 80 80 Respiratory Rate 29 H 34 H 30 H Blood Pressure 122/61 121/64 121/64 Pulse Oximetry 99 95 98 06/07/18 03:05 06/07/18 03:18 06/07/18 04:00 Temperature 98 F 98.2 F Pulse Rate 85 88 89 Respiratory Rate 29 H 16 31 H Blood Pressure 118/66 121/67 Pulse Oximetry 97 06/07/18 05:00 06/07/18 05:57 06/07/18 06:00 Temperature 98 F Pulse Rate 81 63 84 Respiratory Rate 28 H 32 H 44 H Blood Pressure 136/67 133/67 139/71 Pulse Oximetry 96 95 06/07/18 07:00 Temperature Pulse Rate 86 Respiratory Rate 32 H Blood Pressure 147/68 H Pulse Oximetry 95 Intake & Output 06/06/18 06/07/18 06/07/18 18:59 06:59 18:59 Intake Total 200 / 200 1263 / 1263 Output Total 900 / 900 850 / 850 Balance -700 / -700 413 / 413 Intake: IV 200 / 200 1100 / 1100 NS Inj 1,000 ML @ 50 mls/hr IV. 1000 / 1000 CONT .Q20H NILSA Rx#:[id number] Flagyl 500 MG Inj 100 ML @ 100 200 / 200 100 / 100 mls/hr IV.SIG Q8H NILSA Rx#: [id number] Oral 0 / 0 Intake (Blood Product) Amt 163 / 163 Rbc As-3 Leukoreduced Unit 99 / 99 [id number] Rbc As-3 Leukoreduced Unit 64 / 64 [id number] Output: Urine 900 / 900 850 / 850 Other: Date of Last Bowel Movement 06/05/18 06/05/18 # Bowel Movements 1 - Constitutional no acute distress (At rest currently in the intensive care setting), average body habitus, cooperative - Routine HEENT Exam Head: Present: normocephalic ENT: Present: mucous membranes moist - Routine Neck Exam Present: supple - Routine Respiratory Exam Present: accessory muscle use (No obvious shortness of breath but patient is using oxygen at 3 L nasal cannula which is his norm at home) - Routine Cardiovascular Exam Present: RRR - Routine Abdominal Exam Present: soft (No obvious distention bowel sounds are active, no obvious abdominal pain this a.m. and to light palpation) - Routine Skin Exam Present: intact, pallor (Pale) - Routine Neurological Exam Present: alert (Answer simple questions) Results - Labs CBC & Chem 7: 06/06/18 16:00 06/06/18 04:32 Labs: Laboratory Results - last 24 hr 06/06/18 06/06/18 06/06/18 12:39 16:00 20:44 Hgb 7.0 L Hct 21.5 L POC Glucose 162 H Blood Type O Positive Blood Type Recheck Required Antibody Screen Negative MTS Gel Crossmatch See Detail 06/07/18 06/07/18 00:21 05:55 Hgb Hct POC Glucose 143 H 131 H Blood Type Blood Type Recheck Antibody Screen MTS Gel Crossmatch Assessment and Plan - Plan 73-year-old male who came to the hospital here at [place] for evaluation on 06/05 with symptoms of abdominal pain diarrhea and some shortness of breath. Patient is originally from the [place] area and was here on vacation when he noted loose stools uncontrolled as well as abdominal pain and cramping diffusely across his abdomen. Patient also noted dark melena stool when the abdominal cramping was occurring. Patient did have one episode of nausea and vomiting in the emergency room but has been controlled since that time. Initial hemoglobin on admission was 10 but had dropped down to 7. And 2 units of packed RBCs were transfused. Patient has cardiovascular disease and recent stent placement in February 2018 in which at that time he was started on Plavix. Patient also has history of Le's esophagus and states endoscopy approximately 2-1/2 years ago and colonoscopy at the age of 52 x 1 and no repeat since. Aggregating factors to patient's melena and abdominal pain could be related to travel, RA medications, and has been eaten seafood as well as raw oysters x2. Patient also had been working on a low-carb diet a few weeks before his vacation. Patient denies any history of peptic ulcer disease or bleeding ulcers. Patient notes occasionally does have loose diarrhea stools which he describes as sporadic and states that he feels it is related to his RA med. Labs show bilirubin and LFTs normal, PT/INR 1.2, C. difficile test negative. During exam patient did note some mild dysphasia at the lower end of esophagus and states this is been going on for at least a year but he does not note any choking sensations. Patient does use home O2 at 3 L and is currently being managed at 3 L nasal cannula in the intensive care setting. Currently patient has no shortness of breath, heart rate is controlled with sinus rhythm and blood pressure is stable without any noted hypotension. Gastroenterology was consulted to assist with patient's plan of care, symptoms. According to the patient and the record Plavix has been on hold day 2. Patient has family members at his bedside assisting with his history GI bleed probable upper with symptoms of melena stool, now controlled over the past 48 hours. Symptomatic anemia hemoglobin initially was 10 and decreased to 7. Patient had 2 units packed RBCs and further hemoglobin testing today is pending. History of Le's esophagus last EGD approximately 2-1/2 years ago from his GI physician in [place] Colonoscopy at the age of [age] years ago and none since History of Le's esophagus, currently noting some symptoms of mild dysphasia which could be related to Le's versus stricture lower esophagus. Currently patient denies any choking episodes but has noticed dysphasia for approximately 1 year. Diarrhea noted even before this hospital stay and states his RA meds do note the side effects. Other aggregating factors could be travel diarrhea, raw seafood. C. difficile testing negative History of cardiovascular disease and recent cardiac stent in February 2018 patient was then started on Plavix which has been on hold day 2 here in the hospital probably secondary to his melena stools and symptomatic anemia Plan N.p.o. for now Consent for EGD to be done today PPI Monitor labs with special attention hemoglobin and transfuse as needed. Notify GI for any obvious active bleeding Further recommendations to follow Patient was seen per myself and Dr. Coley, note was written on his behalf
[2018-06-07 11:37] LABS: Hematocrit 28.4 % (39.0-51.0); Hemoglobin 9.3 gm/dL (13.0-17.0)
--- NOTE | 2018-06-07 11:48 | P.PCN ---
Date of procedure: 06/07/18 Pre-op diagnosis: Anemia, melena Procedure: PROCEDURE PERFORMED EGD with biopsies PROCEDURE: The procedure, risks and benefits were discussed with Patient/POA and informed consent was obtained. Anesthesia sedated Patient with Diprivan. Patient was placed in the left lateral decubitus position. EGD: The Pentax videoscope was introduced through the oropharynx and advanced to the second portion of the duodenum under direct visualization. Retroflexion was performed in the stomach. FINDINGS: The esophagus appeared to be unremarkable except for a 2 cm Le's esophagus C0 M2 3 tongues biopsies were obtained from the 3 tongues The stomach there was a medium-sized hiatal hernia the gastric mucosa appeared to be diffusely edematous and with patchy erythema no ulcerations no erosions no blood or bleeding antral biopsies were taken for further evaluation The duodenum this was normal ESTIMATED BLOOD LOSS: None SPECIMENS REMOVED: Esophageal and gastric biopsies COMPLICATIONS: None IMPRESSION: Le's esophagus, short segment Hiatal hernia Schultz gastritis PLAN: Await biopsies Continue PPI Monitor labs and transfuse if needed Advance diet Anesthesia: MAC Surgeon: Bennett Coley Condition: stable Disposition: no change
[2018-06-07 12:01] LABS: Calcium 8.2 mg/dL (8.5-10.1); Carbon Dioxide 27.5 meq/L (21.0-32.0); Magnesium 2.4 mg/dL (1.5-2.5); Potassium 4.3 meq/L (3.5-5.1)
[2018-06-08] MEDS: Sod Chloride 0.9% Inj 1,000 ML IV.CONT SCH ×3 (03:20→08:29)
[2018-06-08] MEDS: Insulin NovoLIN Regular Correctional Sugar Inj SQ SCH ×2 (03:24→05:44)
[2018-06-08] MEDS: Chlorhexidine Gluconate 2% 1 Pack (2 Cloths) TOPICAL SCH (03:25)
[2018-06-08 05:04] VITALS: TEMP 97.9
[2018-06-08 05:35] LABS: Hemoglobin 9.2 gm/dL (13.0-17.0); Mean Corpuscular HGB Conc 34.3 % (32.0-36.0); Mean Corpuscular Hemoglobin 30.1 pg (27.0-34.0); Platelet Count 158 th/mm3 (150-450); Red Blood Count 3.06 mil/mm3 (4.50-5.90); Red Cell Distribution Width 18.2 % (11.6-17.2); White Blood Count 8.7 th/mm3 (4.0-11.0)
[2018-06-08] MEDS: Pantoprazole Inj 80 MG in Sodium Chlor 0.9% Inj 100 ML IV.CONT SCH (05:42)
[2018-06-08 05:45] LABS: Albumin 2.5 g/dL (3.4-5.0); Anion Gap 7 meq/L (5-15); Aspartate Aminotransferase 21 U/L (15-37); Blood Urea Nitrogen 31 mg/dL (7-18); Calcium 7.9 mg/dL (8.5-10.1); Carbon Dioxide 25.8 meq/L (21.0-32.0); Chloride 112 meq/L (98-107); Glomerular Filtration Rate 85 mL/min (>89); Glucose,Random 84 mg/dL (74-106); Potassium 3.9 meq/L (3.5-5.1); Sodium 145 meq/L (136-145)
[2018-06-08 05:47] LABS: Alanine Aminotransferase 25 U/L (12-78)
[2018-06-08 05:49] LABS: Alkaline Phosphatase 48 U/L (45-117); Total Protein 4.5 g/dL (6.4-8.2)
[2018-06-08 08:55] VITALS: BP 163/79
[2018-06-08 09:47] VITALS: PULSE 85; RESP 25; O2SAT 93
--- NOTE | 2018-06-08 09:56 | P.DS ---
Date of admission: 06/05/18 05:03 Primary care physician: Sabina Primary Care Physician Attending physician on discharge: Dr. Butt Brief History from admission: This patient is a 73-year-old male with a diagnosis of coronary artery disease status post stent placed in February of this year. The patient also has pulmonary fibrosis and is on 3 L of supplemental oxygen at home. As per the patient's he also has Le's esophagus. He is visiting [place] from [facility]. He presented to our facility last night with 1 day of black tarry diarrhea. The patient and the patient's provided the history. They say he had diarrhea for almost the whole day. He felt weak and dehydrated and then came into the emergency department for evaluation. DS: Medications - Discharge Medications Prescriptions: pantoprazole 40 mg PO BID #30 tab DS: Summary Hospital Course: This patient is a 73-year-old male with a diagnosis of coronary artery disease status post stent placed in February of this year. The patient also has pulmonary fibrosis and is on 3 L of supplemental oxygen at home. As per the patient's he also has Le's esophagus. He is visiting [place] from [facility]. He presented to our facility last night with 1 day of black tarry diarrhea. The patient and the patient's provided the history. They say he had diarrhea for almost the whole day. He felt weak and dehydrated and then came into the emergency department for evaluation. 1. Acute symptomatic blood loss anemia likely GI bleed The patient was admitted and initially was tachycardic and appeared to be dehydrated. He appeared pale on physical examination. His had showed me a previous hemoglobin of 15.2 in May 2018. On arrival to our hospital his hemoglobin was 10 and continues to downtrend to 7. He was given 2 units PRBCs and GI was consulted to evaluate the patient. An upper endoscopy was done which did not show any active bleeding. EGD did show 2 cm El's esophagus COM to, 3 tongue biopsies were obtained. These biopsies will need to be followed up. Recommendations from GI were to continue p.o. Protonix twice daily. He should then follow-up with GI outpatient in 1-2 weeks. He may need a colonoscopy which can be done outpatient. The patient's vital signs are now stable, he has not had any active bleeding while in-house. His current hemoglobin today is 9.2. He was advised to seek immediate medical attention if he begins to notice any bleeding. 2. Pulmonary fibrosis with a 3.6 cm cavitary mass in the right upper lobe. The patient has a diagnosis of pulmonary fibrosis and is on 3 L of supplemental oxygen at baseline. CT scan of the chest shows diffuse lower lobe interstitial thickening and honeycombing which is consistent with the patient's pulmonary disease. There is also a 3.6 cm cavitary mass in the right upper lobe and 2 additional 5-6 mm lung nodules bilaterally. The patient denied having any fevers or chills. He denies having any weight loss or any recent sick contacts. As per the patient and the patient's these are findings that were seen previously on CT scans of the chest and have been worked up in [place]. I strongly recommend that the patient's primary care physician obtain records from our hospital of the CT scan of the chest and compared to a previous CT chest. I discussed workup of the CT scan of the chest with the patient and the patient's to have the workup done while the patient is currently in house. They did not want to stay in house and request to go back to [place] and have the workup done there. They continue to tell me that these are old findings and have been worked up already in [place]. If this is a new finding he should be evaluated by pulmonary and may need a biopsy of this mass. The patient is currently on 3 L of supplemental oxygen and appears comfortable without any complaints of shortness of breath. He has remained afebrile, and denies having a cough. He will be discharged home today. 3. Acute kidney injury likely secondary to #1 Initially the patient was tachycardic and in acute kidney injury. After the initiation of IV fluids the patient's serum creatinine has improved. We will follow-up with an a.m. renal panel which is currently pending. 4. Coronary artery disease status post stent placement in February 2018. 5. Rheumatoid arthritis Continue prednisone. The patient follow-up outpatient for further management recommendations regarding his RA. Continue aspirin, statin, and Plavix. - Time Spent with Patient Total time spent providing and/or coordinating discharge services: Greater than 30 minutes - Quality: VTE Deep Vein Thrombosis/Pulmonary Embolism Present on Admission: No Exam Vital signs: Vital Signs 06/07/18 10:00 10/05/18 10:54 06/07/18 11:07 Temperature 98 F 98 F Pulse Rate 79 82 82 Respiratory Rate 25 H 16 16 Blood Pressure 158/83 H 159/74 H 159/74 H Pulse Oximetry 97 93 L 93 L 06/07/18 11:34 06/07/18 11:45 06/07/18 12:04 Temperature 98.1 F 98.1 F Pulse Rate 78 79 78 Respiratory Rate 16 16 16 Blood Pressure 103/53 L 116/60 116/60 Pulse Oximetry 94 L 94 L 06/07/18 12:08 06/07/18 13:00 06/07/18 14:00 Temperature Pulse Rate 79 78 80 Respiratory Rate 33 H 30 H 33 H Blood Pressure Pulse Oximetry 81 L 98 95 06/07/18 15:00 06/07/18 16:00 06/07/18 16:39 Temperature Pulse Rate 81 79 80 Respiratory Rate 36 H 32 H 22 Blood Pressure 166/84 H 156/105 H Pulse Oximetry 93 L 92 L 06/07/18 17:00 06/07/18 17:01 06/07/18 18:00 Temperature Pulse Rate 91 H 92 H 96 H Respiratory Rate 34 H 35 H 42 H Blood Pressure 149/71 H 158/83 H Pulse Oximetry 86 L 89 L 77 L 06/07/18 19:00 06/07/18 19:21 06/07/18 20:00 Temperature 97.9 F 97.2 F L Pulse Rate 92 H 97 H 100 H Respiratory Rate 38 H 16 39 H Blood Pressure 150/71 H 123/66 Pulse Oximetry 86 L 95 91 L 06/07/18 21:00 06/07/18 22:00 06/07/18 23:00 Temperature 98.1 F 97.9 F 97.9 F Pulse Rate 91 H 100 H 87 Respiratory Rate 33 H 40 H 34 H Blood Pressure 143/66 H 153/79 H 138/68 Pulse Oximetry 99 87 L 89 L 06/08/18 00:00 06/08/18 01:00 06/08/18 02:00 Temperature 97.9 F 97.0 F L 97.2 F L Pulse Rate 80 79 78 Respiratory Rate 27 H 27 H 25 H Blood Pressure 134/66 142/75 H 125/72 Pulse Oximetry 94 L 94 L 93 L 06/08/18 03:00 06/08/18 04:00 06/08/18 05:00 Temperature 98.2 F 97.9 F 97.9 F Pulse Rate 88 79 79 Respiratory Rate 39 H 33 H 33 H Blood Pressure 137/66 146/74 H 145/85 H Pulse Oximetry 83 L 91 L 91 L 06/08/18 05:42 06/08/18 06:00 06/08/18 07:00 Temperature 97.9 F Pulse Rate 84 84 79 Respiratory Rate 37 H 31 H 37 H Blood Pressure 170/68 H 160/82 H 153/75 H Pulse Oximetry 90 L 95 94 L 06/08/18 08:00 Temperature Pulse Rate 76 Respiratory Rate 32 H Blood Pressure 163/79 H Pulse Oximetry 97 Intake & Output 06/07/18 06/08/18 06/08/18 18:59 06:59 18:59 Intake Total 300 / 300 1500 / 1500 Output Total 800 / 800 Balance 300 / 300 700 / 700 Weight 59.4 kg Intake: IV 200 / 200 1400 / 1400 Protonix Inj 80 MG In NS Inj 100 / 100 200 / 200 100 ML @ 10 mls/hr IV.CONT CONT NILSA Rx#:[id number] NS Inj 1,000 ML @ 50 mls/hr IV. 1000 / 1000 CONT .Q20H NILSA Rx#:[id number] Flagyl 500 MG Inj 100 ML @ 100 100 / 100 200 / 200 mls/hr IV.SIG Q8H NILSA Rx#: [id number] Oral 100 / 100 Anesthesia Amount 100 / 100 Output: Urine 800 / 800 Stool 0 / 0 Urine/Stool Mix 0 / 0 Other: # Voids 6 3 # Incontinent Voids 0 # Urine Diapers 0 Date of Last Bowel Movement 06/05/18 06/05/18 06/05/18 # Bowel Movements 0 # Incontinent Bowel Movements 0 Narrative: General patient in no acute distress HEENT extraocular movements are intact, clear oropharyngeal mucosa, no JVD Cardiovascular S1-S2 audible, RRR, no murmurs rubs or gallops Respiratory some coarseness bilaterally. No complaints of shortness of breath. Abdomen soft, nontender, nondistended, normal bowel sounds Extremities no edema 2+ distal pulses in bilateral upper and lower extremities Neuro cranial nerves II through XII intact Results Procedures completed during hospitalization: EGD Labs on day of discharge: Labs from last 24 hours 06/08/18 06/08/18 06/08/18 05:21 04:38 04:38 WBC 8.7 RBC 3.06 L Hgb 9.2 L Hct 27.0 L MCV 88.0 D MCH 30.1 MCHC 34.3 RDW 18.2 H Plt Count 158 MPV 8.0 Sodium 145 Potassium 3.9 Chloride 112 H Carbon Dioxide 25.8 Anion Gap 7 BUN 31 H Creatinine 0.88 Estimated GFR 85 L POC Glucose 92 Random Glucose 84 Calcium 7.9 L Magnesium Total Bilirubin 0.6 AST 21 ALT 25 Alkaline Phosphatase 48 Total Protein 4.5 L Albumin 2.5 L 06/08/18 06/07/18 06/07/18 00:31 17:50 10:19 WBC RBC Hgb Hct MCV MCH MCHC RDW Plt Count MPV Sodium 147 H Potassium 4.3 Chloride 114 H Carbon Dioxide 27.5 Anion Gap 6 BUN 36 H Creatinine 0.99 Estimated GFR 75 L POC Glucose 89 90 Random Glucose 96 Calcium 8.2 L Magnesium 2.4 Total Bilirubin AST ALT Alkaline Phosphatase Total Protein Albumin 06/07/18 10:19 WBC RBC Hgb 9.3 L D Hct 28.4 L MCV MCH MCHC RDW Plt Count MPV Sodium Potassium Chloride Carbon Dioxide Anion Gap BUN Creatinine Estimated GFR POC Glucose Random Glucose Calcium Magnesium Total Bilirubin AST ALT Alkaline Phosphatase Total Protein Albumin Preliminary micro results at discharge 06/05/18 02:10 Aerobic Blood Culture - Preliminary Blood - Peripheral No growth in 2 days Anaerobic Blood Culture - Preliminary No growth in 2 days 06/05/18 02:20 Aerobic Blood Culture - Preliminary Blood - Peripheral No growth in 2 days Anaerobic Blood Culture - Preliminary No growth in 2 days - Impressions ITS Impressions Chest CT 06/05/18 00:00 CONCLUSION: 1. Diffuse lower lobe predominant interstitial thickening and honeycombing consistent with patient's history of pulmonary fibrosis. 2. 3.6 cm cavitary mass in the right upper lobe. There are at least two additional 5 to 6 mm lung nodules bilaterally. Comparisons with prior examinations would be beneficial for further evaluation. Alternatively, PET/CT examination may be performed for further evaluation primarily of the right upper lobe cavitary mass. 3. Moderate coronary artery calcifications. Abdomen/Pelvis CT 06/05/18 01:48 CONCLUSION: 1. Findings consistent with mild diverticulitis involving the proximal descending colon. No evidence for abscess or perforation at this time. 2. Findings consistent with pulmonary fibrosis at the lung bases. 3. Nonspecific prominence of the prostate gland and seminal vesicles. 4. Additional ancillary findings, as above. Chest X-Ray 06/05/18 01:48 CONCLUSION: 1. Cardiomegaly with positive fluid balance. 2. Diffuse patchy bilateral nearly nodule airspace disease. . Discharge Plan - Discharge Disposition Patient Disposition: Discharge Home - Discharge Condition Condition: Good - Discharge Order Discharge Orders: Discharge Order (Routine); Ordered 06/08/18 Ordered By: Alison Butt - Physicians Team Primary Care Provider: Primary Care Partha,Sabina Attending Provider: Alison Butt Other Providers: Bennett Coley MD
--- NOTE | 2018-06-08 13:15 | P.PNGI ---
Subjective Interval history: no bleeding, still with SOB Physical Exam Vital signs: Vital Signs 06/07/18 14:00 06/07/18 15:00 06/07/18 16:00 Temperature Pulse Rate 80 81 79 Respiratory Rate 33 H 36 H 32 H Blood Pressure 166/84 H 156/105 H Pulse Oximetry 95 93 L 92 L 06/07/18 16:39 06/07/18 17:00 06/07/18 17:01 Temperature Pulse Rate 80 91 H 92 H Respiratory Rate 22 34 H 35 H Blood Pressure 149/71 H Pulse Oximetry 86 L 89 L 06/07/18 18:00 06/07/18 19:00 06/07/18 19:21 Temperature 97.9 F Pulse Rate 96 H 92 H 97 H Respiratory Rate 42 H 38 H 16 Blood Pressure 158/83 H 150/71 H Pulse Oximetry 77 L 86 L 95 06/07/18 20:00 06/07/18 21:00 06/07/18 22:00 Temperature 97.2 F L 98.1 F 97.9 F Pulse Rate 100 H 91 H 100 H Respiratory Rate 39 H 33 H 40 H Blood Pressure 123/66 143/66 H 153/79 H Pulse Oximetry 91 L 99 87 L 06/07/18 23:00 06/08/18 00:00 06/08/18 01:00 Temperature 97.9 F 97.9 F 97.0 F L Pulse Rate 87 80 79 Respiratory Rate 34 H 27 H 27 H Blood Pressure 138/68 134/66 142/75 H Pulse Oximetry 89 L 94 L 94 L 06/08/18 02:00 06/08/18 03:00 06/08/18 04:00 Temperature 97.2 F L 98.2 F 97.9 F Pulse Rate 78 88 79 Respiratory Rate 25 H 39 H 33 H Blood Pressure 125/72 137/66 146/74 H Pulse Oximetry 93 L 83 L 91 L 06/08/18 05:00 06/08/18 05:42 06/08/18 06:00 Temperature 97.9 F 97.9 F Pulse Rate 79 84 84 Respiratory Rate 33 H 37 H 31 H Blood Pressure 145/85 H 170/68 H 160/82 H Pulse Oximetry 91 L 90 L 95 06/08/18 07:00 06/08/18 08:00 06/08/18 09:44 Temperature Pulse Rate 79 76 85 Respiratory Rate 37 H 32 H 25 H Blood Pressure 153/75 H 163/79 H Pulse Oximetry 94 L 97 93 L Intake & Output 06/07/18 06/08/18 06/08/18 18:59 06:59 18:59 Intake Total 300 / 300 1500 / 1500 Output Total 800 / 800 Balance 300 / 300 700 / 700 Weight 59.4 kg Intake: IV 200 / 200 1400 / 1400 Protonix Inj 80 MG In NS Inj 100 / 100 200 / 200 100 ML @ 10 mls/hr IV.CONT CONT NILSA Rx#:[id number] NS Inj 1,000 ML @ 50 mls/hr IV. 1000 / 1000 CONT .Q20H NILSA Rx#:[id number] Flagyl 500 MG Inj 100 ML @ 100 100 / 100 200 / 200 mls/hr IV.SIG Q8H NILSA Rx#: [id number] Oral 100 / 100 Anesthesia Amount 100 / 100 Output: Urine 800 / 800 Stool 0 / 0 Urine/Stool Mix 0 / 0 Other: # Voids 6 3 # Incontinent Voids 0 # Urine Diapers 0 Date of Last Bowel Movement 06/05/18 06/05/18 06/05/18 # Bowel Movements 0 # Incontinent Bowel Movements 0 - Constitutional no acute distress - Routine HEENT Exam Head: Present: normocephalic ENT: Present: mucous membranes moist - Routine Neck Exam Present: supple - Routine Respiratory Exam Present: accessory muscle use, prolonged expiratory phase, rhonchi - Routine Cardiovascular Exam Present: RRR - Routine Abdominal Exam Present: soft, normoactive bowel sounds Results - Labs CBC & Chem 7: 06/08/18 04:38 06/08/18 04:38 Laboratory Results - last 24 hr 06/07/18 06/08/18 06/08/18 17:50 00:31 04:38 WBC 8.7 RBC 3.06 L Hgb 9.2 L Hct 27.0 L MCV 88.0 D MCH 30.1 MCHC 34.3 RDW 18.2 H Plt Count 158 MPV 8.0 Sodium Potassium Chloride Carbon Dioxide Anion Gap BUN Creatinine Estimated GFR POC Glucose 90 89 Random Glucose Calcium Total Bilirubin AST ALT Alkaline Phosphatase Total Protein Albumin 06/08/18 06/08/18 04:38 05:21 WBC RBC Hgb Hct MCV MCH MCHC RDW Plt Count MPV Sodium 145 Potassium 3.9 Chloride 112 H Carbon Dioxide 25.8 Anion Gap 7 BUN 31 H Creatinine 0.88 Estimated GFR 85 L POC Glucose 92 Random Glucose 84 Calcium 7.9 L Total Bilirubin 0.6 AST 21 ALT 25 Alkaline Phosphatase 48 Total Protein 4.5 L Albumin 2.5 L Microbiology 06/05/18 02:10 Blood - Peripheral Aerobic Blood Culture - Preliminary No growth in 3 days 06/05/18 02:10 Blood - Peripheral Anaerobic Blood Culture - Preliminary No growth in 3 days 06/05/18 02:20 Blood - Peripheral Aerobic Blood Culture - Preliminary No growth in 3 days 06/05/18 02:20 Blood - Peripheral Anaerobic Blood Culture - Preliminary No growth in 3 days - Procedures EGD Assessment and Plan - Plan Seen and examined prior to dc hhome today. Advised to Fu with local GI doctor. Await biopsy results. PPI daily.
== END 2018-06-08 11:05 | disposition home or self-care (01) ==
LOC: NEPE 01:14 → NEDA 05:03 → HIMC 06:40
PROVIDERS: ADMIT Hospitalist; ATTEND Hospitalist